=== PATIENT | female | born 1990 | race Caucasian/White ===

== ENCOUNTER 2017-08-13 12:48 | Emergency (ER) | payer OTHER ==
[~2017-08-13] VITALS: Ht 165.1 cm; Wt 92.4 kg
[~2017-08-13 12:48] MED LIST: ALTAVERA1 EACH PO; FLEXERIL10 MG PO; MOTRIN800 MG PO; NOHOMEMEDS; TYLENOL WITH C1 EACH PO
[2017-08-13 13:08] VITALS: BP 140/71
[2017-08-13] MEDS ORDERED: SKELAXIN800 MG PO (14:37)
[2017-08-13] MEDS ORDERED: VOLTAREN 1% GE100 GM TP (14:37)
[2017-08-13] MEDS ORDERED: MOTRIN800 MG PO (14:37)
== END 2017-08-13 15:16 | disposition home or self-care (01) ==
LOC: EME 12:48 → RME 12:48
DX: S16.1XXA Strain of muscle, fascia and tendon at neck level, initial encounter (principal); M54.9 Dorsalgia, unspecified; V43.63XA Car passenger injured in collision with pick-up truck in traffic accident, initial encounter; Y92.410 Unspecified street and highway as the place of occurrence of the external cause
CPT/HCPCS: 99281; 99283